=== PATIENT | female | born 1995 | race Caucasian/White ===

== ENCOUNTER 2016-09-27 13:26 | Emergency (ER) | payer BC, OTHER ==
[2016-09-27] MEDS ORDERED: LACTATED RINGERS 1,000 ML ONE (14:12)
[2016-09-27] MEDS ORDERED: DIPHENHYDRAMINE HCL 50 MG/1 ML VIAL ONE (14:12)
[2016-09-27] MEDS ORDERED: HALOPERIDOL LACTATE 5 MG/1 ML AMP ONE (14:12)
[2016-09-27] MEDS ORDERED: MORPHINE SULFATE 2 MG/ML SYRINGE ONE (14:12)
[2016-09-27] MEDS ORDERED: KETOROLAC TROMETHAMINE 30 MG/ML 1 ML VIAL ONE (14:12)
[2016-09-27] MEDS ORDERED: MORPHINE SULFATE 4 MG/ML SYRINGE ONE (14:12)
[2016-09-27 14:16] LABS: PH,URINE 6.5 (5.0-8.0); SPECIFIC GRAVITY 1.015 (1.001-1.030); URINE BILIRUBIN NEGATIVE (NEGATIVE); URINE BLOOD 1+ (NEGATIVE); URINE GLUCOSE (UA) NEGATIVE (NEGATIVE); URINE LEUKOCYTE ESTERASE 1+ (NEGATIVE); URINE NITRITE NEGATIVE (NEGATIVE); URINE PROTEIN NEGATIVE (NEGATIVE); URINE UROBILINOGEN NORMAL (0-1 mg/dl)
[2016-09-27 14:25] LABS: URINE APPEARANCE HAZY; URINE COLOR DARK YELLOW
[2016-09-27 14:27] LABS: ABSOLUTE NEUTROPHIL COUNT 4.8 K/mm3 (1.8-7.7); BASO % 0.3 % (0.2-1.0); EOS # 0.2 (0.0-0.5); EOS % 2.4 % (0.9-2.9); HEMATOCRIT 38.1 % (37.0-47.0); HEMOGLOBIN 12.5 gm/l (12.0-16.0); IMM NEUT% 0.1 % (0-1); LYMPH # 2.2 (1.0-4.8); LYMPH % 28.4 % (15-45); MEAN CELL VOLUME 89.9 fl (81.0-99.0); MEAN CORPUSCULAR HEMOGLOBIN 29.5 pg (27.0-31.0); MEAN CORPUSCULAR HGB CONC 32.8 g/dl (33.0-37.0); MEAN PLATELET VOLUME 9.7 fl (7.4-10.4); MONO # 0.5 (0.0-0.8); MONO % 5.9 % (4-12); NEUT % 62.9 % (43-75); PLATELET COUNT 354 K/mm3 (130-400); RED CELL DISTRIBUTION WIDTH 13.3 % (11.5-14.5)
[2016-09-27 14:37] LABS: ALB/GLOB RATIO 1.4 (>1.0); ALBUMIN 4.1 gm/dL (3.5-5.7); CALCIUM 9.1 mg/dL (8.6-10.3)
[2016-09-27 14:38] LABS: URINE BACTERIA 2+
== END 2016-09-27 15:26 | disposition home or self-care (01) ==
LOC: ED 13:26
DX: R10.9 Unspecified abdominal pain (principal); R11.0 Nausea
CPT/HCPCS: 83690; 84703; 85025; 87086; 80053; 81001; 96375 ×3; 99283 ×2; 96374; 96361; J1200; J1630; J2270 ×2; J1885; J7120